=== PATIENT | female | born 2000 | race Caucasian/White ===

== ENCOUNTER 2019-10-17 17:35 | Emergency (ER) | payer BC, MEDICAID, SELFPAY ==
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
[2019-10-17 17:41] VITALS: BP 119/76; PULSE 117; RESP 18; TEMP 37.1; O2SAT 100
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
[2019-10-17] MEDS: ACETAMINOPHEN 325 MG TABLET 650 MG PO (19:49)
[2019-10-17 19:52] VITALS: BP 112/81; PULSE 85; RESP 16; O2SAT 97
== END 2019-10-17 20:00 | disposition home or self-care (01) ==
PROVIDERS: Emergency Provider General Practice
DX: S00.83XA Contusion of other part of head, initial encounter (principal); W20.8XXA Other cause of strike by thrown, projected or falling object, initial encounter
CPT/HCPCS: 70200; 99282; A9270

== ENCOUNTER 2020-03-11 17:22 | Emergency (ER) | payer BC, MEDICAID, SELFPAY ==
[2020-03-11 17:32] VITALS: BP 147/95; PULSE 94; RESP 18; TEMP 37.6; O2SAT 99
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
== END 2020-03-11 17:56 | disposition home or self-care (01) ==
PROVIDERS: Emergency Provider Emergency Medicine
DX: M27.2 Inflammatory conditions of jaws (principal)
CPT/HCPCS: 99213; G0463

== ENCOUNTER 2020-03-31 17:51 | Emergency (ER) | payer BC, MEDICAID, SELFPAY ==
--- NOTE | ~2020-03-31 | XR_ITS ---
EXAMINATION: XR chest 1V portable INDICATION: Chest pain and shortness of breath TECHNIQUE: Portable AP chest at 1844 hours COMPARISON: None available FINDINGS: The lungs are free of acute opacities. There is no pleural effusion or pneumothorax. The ca rdiomediastinal silhouette is normal for technique. IMPRESSION: 1. No acute cardiopulmonary abnormality. Reviewed, dictated and finalized at location A. LE INSTALLATION HELPER
--- NOTE | 2020-03-31 17:59 | ED.CHESTPAIN ---
HPI - Chest Pain General Chief Complaint: Chest Pain Stated Complaint: chest pain Time Seen by Provider: 03/31/20 17:57 Source: patient Mode of arrival: ambulatory Limitations: no limitations History of Present Illness HPI narrative: 20 years old white female complaining of coughing, sore throat, follow with orthopedics intermittent trouble breathing and chest pain for the last 3 days. Patient's daughter had similar symptoms and was tested negative for Covid 3 days ago. Patient denies any fever, chills, nausea, vomiting, headache IV, exposure to anybody known having COVID-19. Related Data Home Medications Medication Instructions Recorded Confirmed citalopram 10 mg DAILY 03/11/20 03/11/20 Allergies Allergy/AdvReac Type Severity Reaction Status Date / Time metoclopramide Allergy Intermediate Nervousness Verified 10/17/19 18:09 MORPHINE+ANESTHESIA Allergy Severe STOPPED Uncoded 10/17/19 18:09 MY HEART IN SURGERY Review of Systems Review of Systems: Narrative: CONSTITUTIONAL: Denies fever, chills, or sweats. EYES: Denies visual changes, redness, or discharge. ENT: Denies rhinorrhea, congestion, sore throat, or otalgia. CARDIOVASCULAR: Chest pain RESPIRATORY: Denies cough or dyspnea. GASTROINTESTINAL: Denies abdominal pain, nausea, vomiting, or diarrhea. GENITOURINARY: Denies dysuria or hematuria. SKIN: Denies rash or itching. MUSCULOSKELETAL: Denies back pain, joint pain, or myalgia. NEUROLOGIC: Denies headache, numbness, or weakness. PSYCHIATRIC: Denies anxiety or depression. [facility] Social History Social History Gender identity (if verbalized by the patient): Female Exam Narrative: Exam Narrative: General appearance: Well-developed, well-nourished Skin: Normal color Head: Normocephalic, nontraumatic Eyes: Clear conjunctiva ENT: Oropharynx normal, ears normal, nose normal Neck: Supple, nontender Chest and respiratory: Airway patent, no respiratory distress, no accessory muscle use Heart: Regular rate/rhythm Abdomen: Soft, nontender, no organomegaly, quiet bowel sounds Vascular: Normal peripheral pulses, normal capillary refill. Musculoskeletal: Normal range of motion, nontender back Neurologic: Alert and oriented ?3, SALESPERSON NECKTIES is normal as tested, no gross motor deficit Course Course Emergency Course: Stable Vital Signs Vital signs: Vital Signs Temperature 36.7 C 03/31/20 18:02 Pulse Rate 77 03/31/20 18:02 Respiratory Rate 20 03/31/20 18:02 Blood Pressure 133/99 H 03/31/20 18:02 Pulse Oximetry 99 03/31/20 18:02 Temperature 36.7 C 03/31/20 18:02 Pulse Rate 77 03/31/20 18:02 Respiratory Rate 20 03/31/20 18:02 Blood Pressure 133/99 H 03/31/20 18:02 Pulse Oximetry 99 03/31/20 18:02 MDM - Chest Pain MDM Narrative Medical decision making narrative: Patient presents with sore throat, coughing and chest pain. Respiratory viral infection is my concern. Labs, chest x-ray, COVID-19 test ordered. Further plan to follow Differential Diagnosis Differential diagnosis: Likely atypical chest pain, costochondritis and chest pain Lab Data Result diagrams: 03/31/20 18:25 03/31/20 18:25 Labs: Lab Results 03/31/20 03/31/20 03/31/20 Range/Units 18:25 18:25 18:25 WBC 7.1 (4.5-10.0) K/mm3 RBC 4.64 (4.2-5.4) M/mm3 Hgb 13.8 (12.0-15.0) g/dL Hct 42.4 (37.0-47.0) % MCV 91.4 (80-100) fl MCH 29.7 (26-34) pg MCHC 32.5 (32-36) g/dl RDW 13.8 (11.5-14.5) % Plt Count 303 (150-375) k/mm3 MPV 11.8 H (7.4-10.4) fl Immature Gran % (Auto) 0.1 (0-0.5) % Neut % (Auto) 54.0
[2020-03-31 18:02] VITALS: BP 133/99; PULSE 77; RESP 20; TEMP 36.7; O2SAT 99
--- NOTE | 2020-03-31 18:21 | ECG_ITS ---
Measurements Intervals Cameron Rate: 72 P: 47 SC: 150 QRS: 0 QRSD: 88 T: 39 QT: 375 QTc: 411 Interpretive Statements SINUS RHYTHM MINIMAL Q WAVES- HIGH LATERAL LEADS BASELINE ARTIFACT- III, AVF, V1-V2 BORDERLINE ECG Electronically Signed On 04-01-2020 12:06:36 ALLERGIST/PEDIATRIC PULMONOLOGIST by John Salvador D.O.
[2020-03-31 18:33] LABS: Basophils Absolute Auto 0.1 K/mm3 (0.0-0.1); Eosinophils Absolute Auto 0.1 K/mm3 (0-0.3); Eosinophils Percent Auto 1.3 % (0-4.4); Hematocrit 42.4 % (37.0-47.0); Hemoglobin 13.8 g/dL (12.0-15.0); Immature Granulocyte Absolute 0.01 K/mm3 (0.00-0.031); Immature Granulocyte Percent A 0.1 % (0-0.5); Lymphocytes Absolute Auto 2.31 K/mm3 (0.9-3.2); Lymphocytes Percent Auto 32.5 % (18.3-44.2); Mean Corpuscular HGB Conc 32.5 g/dl (32-36); Mean Corpuscular Hemoglobin 29.7 pg (26-34); Mean Corpuscular Volume 91.4 fl (80-100); Mean Platelet Volume 11.8 fl (7.4-10.4); Monocytes Absolute Auto 0.8 K/mm3 (0.1-0.6); Monocytes Percent Auto 11.1 % (2.6-8.5); Neutrophils Absolute Auto 3.8 K/mm3 (1.3-6.7); Platelet Count Result 303 k/mm3 (150-375); Red Blood Count 4.64 M/mm3 (4.2-5.4); Red Cell Distribution Width 13.8 % (11.5-14.5); White Blood Count 7.1 K/mm3 (4.5-10.0)
[2020-03-31 18:42] LABS: INR 0.9; Prothrombin Time 13.2 Seconds (11.1-14.7)
[2020-03-31 18:43] LABS: Partial Thromboplastin Time 27.7 SECONDS (22.3-36.8)
[2020-03-31 18:55] LABS: Anion Gap 7 mmol/L (8-16); Blood Urea Nitrogen 5 mg/dL (7-17); Calcium 9.2 mg/dL (8.4-10.2); Carbon Dioxide 26 mmol/L (22-30); Chloride 108 mmol/L (98-107); Estimated CRCL calculation 106 ml/min; Estimated Glomerular Filt Rate > 60; Glucose 99 mg/dL (65-105); Potassium 3.8 mmol/L (3.4-5.0); Sodium 141 mmol/L (137-145)
[2020-03-31 19:07] LABS: Troponin I < 0.012 ng/mL (0.000-0.034)
[2020-03-31 19:20] VITALS: BP 122/68; PULSE 78; RESP 18; O2SAT 99
[2020-03-31 19:53] VITALS: BP 128/82; PULSE 70; RESP 18; O2SAT 99
[2020-04-01 18:38] LABS: SARS-CoV-2 RNA PCR Negative
== END 2020-03-31 19:54 | disposition home or self-care (01) ==
PROVIDERS: Emergency Provider Emergency Medicine
DX: J06.9 Acute upper respiratory infection, unspecified (principal); Z20.822 Contact with and (suspected) exposure to COVID-19; R94.31 Abnormal electrocardiogram [ECG] [EKG]
CPT/HCPCS: 36415; 71045; 80048; 84484; 85025; 85610; 85730; 93005; 99284; C9803; U0003; U0005

== ENCOUNTER 2020-05-16 21:02 | Emergency (ER) | payer BC, MEDICAID, SELFPAY ==
[2020-05-16 21:20] VITALS: PULSE 106; RESP 18; TEMP 36.7; O2SAT 100
--- NOTE | 2020-05-17 00:06 | PC.NURSE ---
No answer when called from waiting room.
== END 2020-05-17 00:06 | disposition left against medical advice (07) ==
LOC: ANHED 05-17 00:11
DX: Z53.21 Procedure and treatment not carried out due to patient leaving prior to being seen by health care provider (principal)
CPT/HCPCS: 99199

== ENCOUNTER 2020-05-22 16:31 | Emergency (ER) | payer BC, MEDICAID, SELFPAY ==
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
--- NOTE | ~2020-05-22 | XR_ITS ---
XR shoulder LT min 2V 05/22/2020 17:31 INDICATION: Left shoulder pain PROCEDURE: 4 views left shoulder COMPARISON: No prior studies for comparison. FINDINGS: Fracture, dislocation or subluxation is not identified. The soft tissues appear within norm al limits. No foreign bodies are identified. IMPRESSION: 1: NO ACUTE BONE OR JOINT ABNORMALITY IDENTIFIED. Reviewed, dictated and finalized at location A. ERTY SITE MANAGER
[2020-05-22 16:36] VITALS: BP 142/75; PULSE 100; RESP 14; TEMP 36.2; O2SAT 100
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
[2020-05-22 18:11] VITALS: BP 138/70; PULSE 95; RESP 16; O2SAT 98
== END 2020-05-22 18:13 | disposition home or self-care (01) ==
PROVIDERS: Emergency Provider Emergency Medicine
DX: S06.0X0A Concussion without loss of consciousness, initial encounter (principal); V48.5XXA Car driver injured in noncollision transport accident in traffic accident, initial encounter
CPT/HCPCS: 70450; 73030; 99284

== ENCOUNTER 2021-05-09 21:47 | Emergency (ER) | payer OTHER, SELFPAY ==
--- NOTE | ~2021-05-09 | XR_ITS ---
EXAMINATION: XR knee RT min 4V EXAM DATE: 05/09/2021 22:30 INDICATION: pain, fall TECHNIQUE: Right knee frontal, crosstable lateral, orthogonal oblique projections for interpretation . There is no prior study for comparison. FINDINGS: No evidence osteochondral defect or joint body in the right knee joint. There are no acut e fractures or dislocations identified. There is no subcutaneous gas. The soft tissue is unremarkab le. 2 screws bridging a healed anterior tibial or tibial tuberosity fracture. No joint effusion. IMPRESSION: No acute osseous findings. Reviewed, dictated and finalized at location A. NCIAL BROKERS IMPRESSION: No acute osseous findings.
[2021-05-09 22:00] VITALS: BP 134/79; PULSE 86; RESP 15; TEMP 36.6; O2SAT 100
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
[2021-05-09] MEDS: ONDANSETRON HCL ODT 4 MG TABLET PO (22:38)
--- NOTE | 2021-05-09 22:58 | PC.NURSE ---
Report received from HAYLEE Hercules. This RN assumed care of patient at this time.
[2021-05-09] MEDS: HYDROmorphone HCL INJ (*CRX) 1 MG/ML SYR IM (23:28)
[2021-05-10 01:00] VITALS: BP 117/56; PULSE 75; RESP 18; TEMP 36.4; O2SAT 98
== END 2021-05-10 00:57 | disposition home or self-care (01) ==
PROVIDERS: Emergency Provider General Practice; PCP Emergency Medicine
DX: S83.91XA Sprain of unspecified site of right knee, initial encounter (principal); W01.0XXA Fall on same level from slipping, tripping and stumbling without subsequent striking against object, initial encounter
CPT/HCPCS: 73564; 96372; 99283; A9270; J1170

== ENCOUNTER 2021-05-22 11:08 | Emergency (ER) | payer OTHER, SELFPAY ==
[2021-05-22 11:24] VITALS: BP 136/95; PULSE 98; RESP 18; TEMP 36.5; O2SAT 98
--- NOTE | 2021-05-22 12:38 | ED.LOWEXIN ---
HPI - Extremity Injury (Lower) General Chief Complaint: Extremity Injury, Lower Stated Complaint: knee pain Time Seen by Provider: 05/22/21 12:07 History of Present Illness HPI Narrative: 21-year-old female presents to the emergency room with right knee pain for 2 weeks. Patient states that she slipped and fell at work twisting her knee. Was seen in the emergency room 2 weeks ago for this injury, was told it was knee sprain. Patient has been wearing a knee immobilizer, taking Tylenol ibuprofen without relief. Patient states she is unable to ambulate, due to the pain. Patient states that she is trying to go through Workmen's [employer] to manage the injury. Patient states that she has not followed up with orthopedics as of yet, due to Workmen's Comp. interference. Related Data Allergies Allergy/AdvReac Type Severity Reaction Status Date / Time metoclopramide Allergy Intermediate Nervousness Verified 05/22/21 11:32 MORPHINE+ANESTHESIA Allergy Severe STOPPED Uncoded 05/22/21 11:32 MY HEART IN SURGERY Review of Systems Review of Systems: CONSTITUTIONAL: Denies fever, chills, or sweats. EYES: Denies visual changes, redness, or discharge. ENT: Denies rhinorrhea, congestion, sore throat, or otalgia. CARDIOVASCULAR: Denies chest pain, palpitations, or edema. RESPIRATORY: Denies cough or dyspnea. GASTROINTESTINAL: Denies abdominal pain, nausea, vomiting, or diarrhea. GENITOURINARY: Denies dysuria or hematuria. SKIN: Denies rash or itching. MUSCULOSKELETAL:Per HPI: Left knee pain NEUROLOGIC: Denies headache, numbness, dizziness, or weakness. PSYCHIATRIC: Denies anxiety or depression. PMFSH Past Medical History Medical History (Updated 05/22/21 @ 13:01 by Alli Green APRN) Knee pain No active medical problems Surgical History Surgical History H/O right knee surgery Social History Social History Substance use: never Gender identity (if verbalized by the patient): Female Exam Narrative: GENERAL: Well-appearing, well-nourished, and in no acute distress. HEAD: Normocephalic, atraumatic. EYES: PERRLA and EOMI. ENT: Nares clear, no rhinorrhea or epistaxis. Mucous membranes moist. Oropharynx without tonsillar hypertrophy exudate or other lesions. Bilateral TMs pearly gamez nonbulging NECK: Supple. No adenopathy or masses. No carotid bruits or JVD CHEST: Clear to auscultation. No respiratory distress. No wheezes rales or rhonchi HEART: Regular rate and rhythm. No murmur heard. Normal peripheral pulses. ABDOMEN: Soft, nontender, nondistended, normal active bowel sounds. EXTREMITIES: right knee: infrapatellar tenderness and STS; LROM; pain with varus and valgus pressure; positive Liz's test; neurovascular distally intact. SKIN: Warm, dry, no rash. NEURO: No focal deficits. Alert and oriented x3. PSYCH: Normal mood and affect. Course Vital Signs Vital signs: Vital Signs Temperature 36.5 C 05/22/21 11:24 Pulse Rate 98 05/22/21 11:24 Respiratory Rate 18 05/22/21 11:24 Blood Pressure 136/95 H 05/22/21 11:24 Pulse Oximetry 98 05/22/21 11:24 Temperature 36.5 C 05/22/21 11:24 Pulse Rate 98 05/22/21 11:24 Respiratory Rate 18 05/22/21 11:24 Blood Pressure 136/95 H 05/22/21 11:24 Pulse Oximetry 98 05/22/21 11:24 MDM - Extremity Injury (Lower) MDM Narrative Medical decision making narrative: Given the patient's history and physical exam, I am concerned the patient may have a meniscal injury. Workmen's Comp. Strongly encourage patient to follow-up with orthopedist or seek further evaluation at a Workmen's Comp. urgent care facility. Patient is agreeable with this treatment plan Discharge Plan Discharge Clinical Impression: Acute pain of right knee Patient Disposition: Home, Self-Care Condition: Stable Instructions: Antibiotic Form Prescriptions: N
[2021-05-22 13:13] VITALS: BP 128/68; PULSE 78; RESP 18; O2SAT 99
--- NOTE | 2021-05-22 14:09 | PC.NURSE ---
Pt. called per pt. [facility] [place] [facility] [place]. Rx to [address] in [place] per pt. preference
== END 2021-05-22 13:14 | disposition home or self-care (01) ==
PROVIDERS: Emergency Provider Nurse Practitioner Family
DX: M25.561 Pain in right knee (principal)
CPT/HCPCS: 99283